=== PATIENT | male | born 1985 | race African-American/Black ===

== ENCOUNTER 2018-06-07 00:26 | Emergency (ER) | payer BC ==
[~2018-06-07] VITALS: Ht 170.2 cm; Wt 63.5 kg
--- OUTSIDE RECORDS SUMMARY | 2018-06-07 00:56 | XMS REPORT ---
Author Author LAYLA TURPIN Organization [facility] Address [address] [place] [address] Care Team Providers Care Bingo Clerk Name Role Phone LAYLA TURPIN Unavailable PROBLEMS Type Condition ICD9-CM Code IMN35-FV Code Onset Dates Condition Status SNOMED Code Problem Moderate persistent asthma without complication J45.40 Active 745876483 Problem Mild intermittent asthma without complication J45.20 Active 529100939 ALLERGIES No Known Allergies ENCOUNTERS Encounter Location Date Diagnosis [facility] [id number] [place] [address] Dec, Moderate persistent asthma without complication J45.40 [facility] [address] [address] Oct, Mild intermittent asthma without complication J45.20 [facility] [id number] [place] [phone] Mar, Exposure to STD Z20.2 [facility] [id number] [place] [address] Jul, [facility] [id number] [place] [address] Jul, [facility] [id number] [place] [address] Mar, [facility] [address] [address] Mar, [facility] [address] [address] Feb, [facility] [id number] [place] [address] 95[address] Feb, [facility] [address] [facility] [id number] [address] Feb, [facility] [address] [facility] [id number] Feb, [facility] [address] [facility] [id number][place] [address] Feb, [facility] [address] [facility] [id number], [place] [address] Feb, [facility] [address] [facility] [id number], [place] [address] Feb, [facility] [address] [facility] [id number], [place] [address] Jan, [facility] [address], [place] [address] Jan, [facility] [address], [place] [address] Jan, [facility] [address], [place] [address] Jan, [facility] [address], [place] [address] Jan, [facility] [address], [place] [address] Jan, [facility] [address], [place] [address] Jan, [facility] [id number], [place] [address] Jan, [facility] [id number], [place] [address] Jan, IMMUNIZATIONS No Known Immunizations SOCIAL HISTORY Never Assessed REASON FOR VISIT asthma f/u Kamaljit JOSEPH, needs refill on asthma inhaler Kamaljit JOSEPH PLAN OF CARE Activity Details Follow Up 6 Months Reason: VITAL SIGNS Height 68 in 2018-01-12 Weight 142.1 lbs 2018-01-12 Temperature 98 degrees Fahrenheit 2018-01-12 Heart Rate 73 bpm 2018-01-12 Respiratory Rate 18 2018-01-12 BMI 21.60 kg/m2 2018-01-12 Blood pressure systolic 106 mmHg 2018-01-12 Blood pressure diastolic 78 mmHg 2018-01-12 MEDICATIONS Medication Instructions Dosage Frequency Start Date End Date Duration Status Symbicort 80-4.5 MCG/ACT Inhalation Twice a day 2 puffs 12h 28 Dec, 2017 Active Ventolin HFA cfc free 90 mcg/inh inhale 2-4 puff by Inhalation route as needed every 4 hours for 30 days PRN for cough or wheeze Jan, Active RESULTS No Results PROCEDURES No Known procedures INSTRUCTIONS MEDICATIONS ADMINISTERED No Known Medications MEDICAL (GENERAL) HISTORY Type Description Date Medical History Asthma Surgical History No Surgical history information
--- OUTSIDE RECORDS SUMMARY | 2018-06-07 00:56 | XMS REPORT ---
Author Author LAUREANOCAROLYN Aguirre Organization [facility] Address [address] [place] [address] Care Team Providers Care Audit Senior Associate Name Role Phone CAROLYN LAUREANO Unavailable PROBLEMS Type Condition ICD9-CM Code EOF26-ZF Code Onset Dates Condition Status SNOMED Code Problem Other dyspnea and respiratory abnormalities 786.09 Active 555180768 Problem Screening examination for venereal disease V74.5 Active 571282922 Problem Asthma, unspecified, unspecified status 493.90 Active 56976366 Assessment Exposure to STD Z20.2 Mar, Active 794291418 ALLERGIES Substance Reaction Event Type Date Status N.K.D.A. Unknown Non Drug Allergy Mar, Unknown SOCIAL HISTORY No smoking Hx information available PLAN OF CARE VITAL SIGNS Height 68 in 2016-03-21 Weight 137.2 lbs 2016-03-21 Heart Rate 90 bpm 2016-03-21 Respiratory Rate 18 2016-03-21 BMI 20.86 kg/m2 2016-03-21 Blood pressure systolic 110 mmHg 2016-03-21 Blood pressure diastolic 70 mmHg 2016-03-21 MEDICATIONS Medication Instructions Dosage Frequency Start Date End Date Duration Status Metronidazole 500 MG Orally Twice a day 1 tablet 12h Mar, Mar, 07 days Active RESULTS Name Result Date Reference Range GC/CHLAM URINE (STATE) 2016-03-21 CHLAMYDIA GC HEP C ANTIBODY (STATE) 2016-03-21 RESULTS SYPHILIS (STATE) 2016-03-21 HIV (STATE) 2016-03-21 HEP B SURFACE ANTIGEN (STATE) 2016-03-21 HEP B ANTIBODY HEP B ANTIBODY (L) HEP B ANTIBODY (STATE) PROCEDURES Procedure Date Ordered Related Diagnosis Body Site No Charge Mar 21, 2016 Office Visit, Est Pt., Level 3 Mar 21, 2016 VENIPUNCT, ROUTINE* Mar 21, 2016 IMMUNIZATIONS No Known Immunizations
--- OUTSIDE RECORDS SUMMARY | 2018-06-07 00:56 | XMS REPORT ---
Author Author SHON GANDHI Guillaume [facility] Address Unknown Care Team Providers Care Unitizer Name Role Phone SHON GANDHI Unavailable PROBLEMS Type Condition ICD9-CM Code RCG20-QF Code Onset Dates Condition Status SNOMED Code Problem Moderate persistent asthma without complication J45.40 Active 320450979 Problem Mild intermittent asthma without complication J45.20 Active 047844294 ALLERGIES No Known Allergies ENCOUNTERS Encounter Location Date Diagnosis [facility] [id number] [place] [id number] Jan, Dental examination Z01.20 and Caries K02.9 [facility] [address] [address] Dec, Moderate persistent asthma without complication J45.40 [facility] [id number] [place] [address] Oct, Mild intermittent asthma without complication J45.20 [facility] [id number] [place] [address] Mar, Exposure to STD Z20.2 [facility] [id number] [place] [address] Jul, [facility] [address] [address] Jul, [facility] [address] [address] Mar, [facility] [address] [address] Mar, [facility] [address] [address] Feb, [facility] [address] [facility] [id number] [place] [address] Feb, [facility] [address] [id number] [place] [address] Feb, [facility] [address] [facility] [id number] [place] [address]- [address] Feb, [facility] [address] [facility] [id number] [place] [address]- [address] Feb, [facility] [address] [id number] [place] [address]- 8163 Feb, [facility] [address] [facility] [id number] [place] [address]- 9[address] Feb, [facility] [address] [facility] [id number] [address] Jan, [facility] [address] [facility] [id number] [place] [address]- [address] Jan, [facility] [address] [facility] [id number] [place] [address]- [address] Jan, [facility] [address] [facility] [id number] [place] [address]- [address] Jan, [facility] [address] [facility] [id number] [place] [address]- [address] Jan, [facility] [address] [facility] [id number] [place] [address]- [address] Jan, [facility] [address] [facility] [id number] [place] [address]- [address] Jan, [facility] [address] [facility] [id number] [place] [address]- [address] Jan, [facility] [address] [facility] [id number] [address]- [address] Jan, IMMUNIZATIONS No Known Immunizations SOCIAL HISTORY Never Assessed REASON FOR VISIT brennan PLAN OF CARE Activity Details Follow Up prn Reason:as needed VITAL SIGNS Height 68 in 2018-02-13 Blood pressure systolic 122 mmHg 2018-02-13 Blood pressure diastolic 85 mmHg 2018-02-13 MEDICATIONS Medication Instructions Dosage Frequency Start Date End Date Duration Status Ventolin HFA cfc free 90 mcg/inh inhale 2-4 puff by Inhalation route as needed every 4 hours for 30 days PRN for cough or wheeze Jan, Active Symbicort 80-4.5 MCG/ACT Inhalation Twice a day 2 puffs 12h Dec, Active Amoxicillin 500 mg Orally every 8 hrs 1 capsule 8h Jan, 7 days Active RESULTS No Results PROCEDURES Procedure Date Ordered Result Body Site LTD ORAL EVALUATION - PROBLEM FOCUS Feb 13, 2018 INTRAORL-PERIAPICAL 1 FILM [id number] Feb 13, 2018 EXTRAC ERUPTED TOOTH/EXPOSED ROOT Feb 13, 2018 BITEWING - SINGLE FILM Feb 13, 2018 INSTRUCTIONS MEDICATIONS ADMINISTERED No Known Medications MEDICAL (GENERAL) HISTORY Type Description Date Medical History Asthma Surgical History No Surgical history information
--- OUTSIDE RECORDS SUMMARY | 2018-06-07 00:56 | XMS REPORT | Continuity of Care Document ---
Author Author [facility] Address Unknown Phone Unavailable Allergies There is no data. Medications There is no data. Problems Date Dx Coded Attending Type Code Diagnosis Diagnosed By 01/24/2013 DESIRAE KAPLAN DO V74.5 SCREENING EXAMINATION FOR VENEREAL DISEASE 01/24/2013 DESIRAE KAPLAN DO V74.5 SCREENING EXAMINATION FOR VENEREAL DISEASE 01/24/2013 YANI ANTHONY APRN V74.5 SCREENING EXAMINATION FOR VENEREAL DISEASE 01/24/2013 YANI ANTHONY APRN V74.5 SCREENING EXAMINATION FOR VENEREAL DISEASE 02/06/2013 DESIRAE KAPLAN DO 493.90 ASTHMA UNSPECIFIED 02/06/2013 YANI ANTHONY APRN 493.90 ASTHMA UNSPECIFIED 02/06/2013 YANI ANTHONY APRN R 493.90 ASTHMA UNSPECIFIED 02/19/2014 YANI ANTHONY APRN 786.09 RESPIRATORY ABNORMALITY OTHER 02/19/2014 YANI ANTHONY APRN 786.09 RESPIRATORY ABNORMALITY OTHER Procedures Code Description [place] [id number] ROUTINE VENIPUNCTURE 01/24/2013 30619 SYPHILIS TEST 01/24/2013 41282 HIV ANTIBODIES (RML) 01/24/2013 78063 GC/CHLAM URINE (STATE) 01/24/2013 38347 ROUTINE VENIPUNCTURE 02/19/2014 29977 CBC 02/19/2014 74233 MYCOPLASMA ANTIBODY 02/20/2014 66672 XRAY CHEST 2 VIEW 02/20/2014 17580 OXIMETRY 02/20/2014 Results There is no data. Encounters ACCT No. Visit Date/Time Discharge Status Pt. Type Provider Facility Loc./Unit Complaint [id number] 03/21/2014 11:01:00 03/21/2014 23:59:59 CLS Outpatient YANI ANTHONY APRN [id number] 02/19/2014 09:28:00 02/19/2014 23:59:59 CLS Outpatient YANI ANTHONY APRN [id number] 02/06/2013 10:58:00 02/06/2013 23:59:59 CLS Outpatient DESIRAE KAPLAN DO [id number] 01/24/2013 08:47:00 01/24/2013 23:59:59 [place] [id number] 05/10/2018 08:05:00 05/10/2018 23:59:59 CLS Outpatient RAVIN GARRETT [facility]
--- OUTSIDE RECORDS SUMMARY | 2018-06-07 00:56 | XMS REPORT ---
Author Author LAYLA TURPIN Organization [facility] Address [address] [place] [address] Care Team Providers Care Bacteriologist Soil Name Role Phone LAYLA TURPIN Unavailable PROBLEMS Type Condition ICD9-CM Code RMC83-LZ Code Onset Dates Condition Status SNOMED Code Problem Mild intermittent asthma without complication J45.20 Active 286315656 ALLERGIES No Known Allergies ENCOUNTERS Encounter Location Date Diagnosis [facility] [id number] [place] [address] Oct, Mild intermittent asthma without complication J45.20 [facility] [id number] [place] [phone] Mar, Exposure to STD Z20.2 [facility] [id number] [place] [address] Jul, [facility] [address] [address] Jul, [facility] [id number] [place] [address]- 49[address] Mar, [facility] [id number] [place] [address]- [address] Mar, [facility] [id number] [place] [address]- 3558 Feb, [facility] [address] [address] Feb, [facility] [id number] [place] [address]- [address]64 Feb, [facility] [address] [address] Feb, [facility] [address] [address] Feb, [facility] [place] [address] [facility] [id number] Feb, [facility] [address] Feb, [facility] [address] [facility] [id number][place]23[place] Jan, [facility] [place] [address] [facility] [id number] Jan, [facility] [address] [address] Jan, [facility] [place] [address], [place] [address] Jan, [facility] [address], [place] [address]- [address] Jan, [facility] [address], [place] [address]- [address] Jan, [facility] [address], [place] [address]- [address]68 Jan, [facility] [address], [place] [address]- [address] Jan, [facility] [id number] [address] Jan, IMMUNIZATIONS No Known Immunizations SOCIAL HISTORY Never Assessed REASON FOR VISIT Asthma, PT reports that since yesterday his asthma has worsened making it hard for him to sleep -Zia JOSEPH , Felicia clarke PLAN OF CARE Activity Details Follow Up prn Reason: VITAL SIGNS Height 68 in 2017-10-16 Weight 142.0 lbs 2017-10-16 Temperature 98.6 degrees Fahrenheit 2017-10-16 Heart Rate 87 bpm 2017-10-16 Respiratory Rate 20 2017-10-16 Oximetry on room air:95 % 2017-10-16 BMI 21.59 kg/m2 2017-10-16 Blood pressure systolic 120 mmHg 2017-10-16 Blood pressure diastolic 100 mmHg 2017-10-16 MEDICATIONS Medication Instructions Dosage Frequency Start Date [...]
[2018-06-07 00:57] LABS: BILIRUBIN,URINE NEGATIVE (NEGATIVE); CLARITY,URINE CLEAR; COLOR,URINE YELLOW; GLUCOSE, URINE (UA) NEGATIVE (NEGATIVE); KETONES,URINE NEGATIVE (NEGATIVE); LEUKOCYTE ESTERASE ,URINE NEGATIVE (NEGATIVE); NITRITE,URINE NEGATIVE (NEGATIVE); PH,URINE 7 (5-9); PROTEIN,URINE NEGATIVE (NEGATIVE); UROBILINOGEN,URINE NORMAL (NORMAL)
[2018-06-07 01:00] LABS: BASOPHILS % (AUTO) 1 % (0-10); EOSINOPHILS # (AUTO) 0.5 10^3/uL (0.0-0.3); EOSINOPHILS % (AUTO) 8 % (0-10); HEMATOCRIT 42 % (40-54); HEMOGLOBIN 14.5 G/DL (13.3-17.7); LYMPHOCYTES # (AUTO) 3.1 X 10^3 (1.0-4.0); LYMPHOCYTES % (AUTO) 51 % (12-44); MEAN CORPUSCULAR HEMOGLOBIN 30 PG (25-34); MEAN CORPUSCULAR HGB CONC 34 G/DL (32-36); MEAN CORPUSCULAR VOLUME 86 FL (80-99); MONOCYTES # (AUTO) 0.5 X 10^3 (0.0-1.0); MONOCYTES % (AUTO) 9 % (0-12); NEUTROPHILS # (AUTO) 1.9 X 10^3 (1.8-7.8); NEUTROPHILS % (AUTO) 32 % (42-75); PLATELET COUNT 268 10^3/uL (130-400); RED CELL DISTRIBUTION WIDTH 14.5 % (10.0-14.5)
[2018-06-07 01:06] LABS: BACTERIA,URINE TRACE /HPF; SQUAMOUS EPITHELIAL CELL,UR RARE /HPF
--- NOTE | 2018-06-07 01:16 | ED Abdominal Pain ---
General Chief Complaint: Abdominal/GI Problems Stated Complaint: ABD PAIN,LEFT SIDE Nursing Triage Note: complaint of abdominal pain since monday denies fever denies n/v/d Sepsis Screen: No Definite Risk Source of Information: Patient History of Present Illness Date Seen by Provider: Jun 07, 2018 Time Seen by Provider: 00:50 Initial Comments PT ARRIVES VIA POV FROM HOME C/O LUQ PAIN SINCE Monday06/04/18 STATES PAIN STARTED AT 0400 ON MONDAY AND LASTED TIL NOON STARTED AGAIN AT 0500 ON MONDAY AND LASTED TIL NOON STARTED AGAIN AT 0600 ON MONDAY /EARLIER TODAY AND LASTED TIL NOON PAIN RETURNED AT 2200 TONIGHT AND IS STILL PRESENT, BUT IS NOT VERY BAD NOW NOTHING WORSENS OR IMPROVES PAIN NO NAUSEA/VOMITING/DIARRHEA/CONSTIPATION--HAD BM AT 0600 AND AGAIN AT 2200 NO FEVER NO URINARY SYMPTOMS HAS CONTINUED TO EAT AND DRINK USUAL--LAST ATE AROUND 2100--PIZZA NO HISTORY OF SIMILAR HAS NOT TAKEN ANYTHING FOR PAIN PCP:[facility] Allergies and Home Medications Allergies Coded Allergies: No Known Allergies (Unverified Allergy, Mild, 08/26/08) Patient Home Medication List Home Medication List Reviewed: Yes Review of Systems Review of Systems Constitutional: no symptoms reported Respiratory: No Symptoms Reported Cardiovascular: No Symptoms Reported Gastrointestinal: See HPI, Abdominal Pain; Denies Constipated, Denies Diarrhea , Denies Nausea, Denies Poor Appetite, Denies Vomiting Genitourinary: No Symptoms Reported Musculoskeletal: no symptoms reported Skin: no symptoms reported Psychiatric/Neurological: No Symptoms Reported Endocrine: No Symptoms Reported Hematologic/Lymphatic: No Symptoms Reported Past Ntlmxji-Kgtdih-Eqtjjg Hx Patient Social History Alcohol Use: Denies Use Recreational Drug Use: No Smoking Status: Current Everyday Smoker (1 PPD, HAS "VAPED" SINCE 10/2017) Type Used: Cigarettes, Electronic/Vapor 2nd Hand Smoke Exposure: Yes Recent Foreign Travel: No Contact w/Someone Who Travel: No Recent Infectious Disease Expo: No Recent Hopitalizations: No Seasonal Allergies Seasonal Allergies: No Past Medical History Surgeries: No Respiratory: Yes Asthma Cardiac: No Neurological: No Reproductive Disorders: No Genitourinary: No Gastrointestinal: No Musculoskeletal: No Endocrine: No HEENT: No Cancer: No Psychosocial: No Integumentary: No Blood Disorders: No Physical Exam Vital Signs Vital Signs - First Documented 06/07/18 00:50 Temp 96.9 Pulse 71 Resp 20 B/P (MAP) 126/91 (103) Pulse Ox 98 O2 Delivery Room Air Capillary Refill : Less Than 3 Seconds Height/Weight/BMI Height: 5'7.00" Weight: 140lbs. oz. 63.764782ed; BMI Method:Estimated General Appearance: WD/WN, no apparent distress, thin, other (LAYING OUTSTRETCHED, DOES NOT APPEAR TO BE IN ANY DISCOMFORT OR DISTRESS) Respiratory: normal breath sounds, no respiratory distress, no accessory muscle use Cardiovascular: regular rate, rhythm, no murmur Gastrointestinal: normal bowel sounds, soft, no organomegaly, no pulsatile mass ; No distended, No guarding, No rebound; tenderness (LUQ); No hernia, No mass Extremities: normal inspection Back: normal inspection, no CVA tenderness Neurologic/Psychiatric: admissions dean II-XII nml as tested, no motor/sensory deficits, alert, normal mood/affect, oriented x 3 Skin: normal color (PT IS BLACK); No rash Progress/Results/Core Measures Results/Orders Lab Results Laboratory Tests Test 06/07/18 00:46 06/07/18 00:50 Range/Units Urine Color YELLOW Urine Clarity CLEAR Urine pH 7 5-9 Urine Specific [place] 1.010 L 1.016-1.022 Urine Protein NEGATIVE NEGATIVE Urine Glucose (UA) NEGATIVE NEGATIVE Urine Ketones NEGATIVE NEGATIVE Urine Nitrite NEGATIVE NEGATIVE Urine Bilirubin NEGATIVE NEGATIVE Urine Urobilinogen NORMAL NORMAL MG/DL Urine Leukocyte Esterase NEGATIVE NEGATIVE Urine RBC (Auto) NEGATIVE NEGATIVE Urine RBC NONE /HPF Urine WBC NONE /HPF Urine Squamous Epithelial Cells RARE /HPF Urine Crystals NONE /LPF Urine Bacteria TRACE /HPF Urine Casts NONE /LPF Urine Mucus NEGATIVE /LPF Urine Culture Indicated NO White Blood Count 6.0 4.3-11.0 10^3/uL Red Blood Count 4.91 4.35-5.85 10^6/uL Hemoglobin 14.5 13.3-17.7 G/DL Hematocrit 42 40-54 % Mean Corpuscular Volume 86 80-99 FL Mean Corpuscular Hemoglobin 30 25-34 PG Mean Corpuscular Hemoglobin Concent 34 32-36 G/DL Red Cell Distribution Width 14.5 10.0-14.5 % Platelet Count 268 130-400 10^3/uL Mean Platelet Volume 9.0 7.4-10.4 FL Neutrophils (%) (Auto) 32 L 42-75 % Lymphocytes (%) (Auto) 51 H 12-44 % Monocytes (%) (Auto) 9 0-12 % Eosinophils (%) (Auto) 8 0-10 % Basophils (%) (Auto) 1 0-10 % Neutrophils # (Auto) 1.9 1.8-7.8 X 10^3 Lymphocytes # (Auto) 3.1 1.0-4.0 X 10^3 Monocytes # (Auto) 0.5 0.0-1.0 X 10^3 Eosinophils # (Auto) 0.5 H 0.0-0.3 10^3/uL Basophils # (Auto) 0.0 0.0-0.1 10^3/uL Sodium Level 138 135-145 MMOL/L Potassium Level 4.4 3.6-5.0 MMOL/L Chloride Level 105 98-107 MMOL/L Carbon Dioxide Level 23 21-32 MMOL/L Anion Gap 10 5-14 MMOL/L Blood Urea Nitrogen 12 7-18 MG/DL Creatinine 0.97 0.60-1.30 MG/DL Estimat Glomerular Filtration Rate > 60 BUN/Creatinine Ratio 12 Glucose Level 100 70-105 MG/DL Calcium Level 9.2 8.5-10.1 MG/DL Corrected Calcium 9.0 8.5-10.1 MG/DL Total Bilirubin 0.3 0.1-1.0 MG/DL Aspartate Amino Transf (AST/SGOT) 26 5-34 U/L Alanine Aminotransferase (ALT/SGPT) 28 0-55 U/L Alkaline Phosphatase 71 40-136 U/L Total Protein 7.4 6.4-8.2 GM/DL Albumin 4.3 3.2-4.5 GM/DL Amylase Level 104 25-125 U/L Lipase 40 8-78 U/L My Orders Orders - YANELY,JERSON K DO Saline Lock/Iv-Start (06/07/18 00:50) Amylase (06/07/18 00:50) Cbc With Automated Diff (06/07/18 00:50) Comprehensive Metabolic Panel (06/07/18 00:50) Lipase (06/07/18 00:50) Ua Culture If Indicated (06/07/18 00:50) Ct Abdomen/Pelvis W (06/07/18 01:08) Acute Abd Series (06/07/18 01:08) Iohexol Injection (Omnipaque 350 Mg/Ml 1 (06/07/18 01:45) Contrast Received (Contrast Received) (06/07/18 01:45) Ns (Ivpb) (Sodium Chloride 0.9% Ivpb Bag (06/07/18 01:45) Medications Given in ED Current Medications Medications Dose Ordered Sig/Lindsey Route Start Time Stop Time Status Last Admin Dose Admin Iohexol 100 ml ONCE ONCE IV 06/07/18 01:45 06/07/18 01:46 DC 06/07/18 01:38 100 ML Sodium Chloride 100 ml ONCE ONCE IV 06/07/18 01:45 06/07/18 01:46 DC 06/07/18 01:39 80 ML Vital Signs/I&O 06/07/18 00:50 Temp 96.9 Pulse 71 Resp 20 B/P (MAP) 126/91 (103) Pulse Ox 98 O2 Delivery Room Air Blood Pressure Mean: 103 Progress Progress Note : Progress Note SLEPT FOR REMAINDER OF ER STAY NO C/O PAIN AT DISMISSAL Diagnostic Imaging Comments ACUTE ABDOMEN XRAYS--NO -SPECIFIC BOWEL GAS, LARGE AMOUNT OF GAS AND STOOL IN COLON, PENDING RADIOLOGIST REVIEW CT ABDOMEN / PELVIS--NON-SPECIFIC COLON AND SMALL BOWEL, WITH FECAL STASIS, POSSIBLE ENTERITIS/COLITIS, NON SPECIFIC AREAS ON SPLEEN AND LEFT KIDNEY, --PER [facility] VIA FAX F@ 3013 Reviewed: Reviewed by Me Departure Impression Primary Impression: LUQ abdominal pain Additional Impressions: POSSIBLE ENTERITIS Constipation Disposition: HOME, SELF-CARE Condition: Improved Departure-Patient Inst. Referrals: [facility] (PCP[facility]Family) Primary Care Physician Patient Instructions: Acute Abdomen (Belly Pain), Adult (DC) Add. Discharge Instructions: CLEAR LIQUIDS--WATER, BROTH, JELLO, GATORADE TAKE MIRALAX EVERY 4 HOURS UNTIL YOUR STOOLS ARE WATERY, THEN DECREASE TO ONCE A DAY FOLLOW UP WITH [facility] IN 2-3 DAYS IF NO BETTER All discharge instructions reviewed with patient and/or family. Voiced understanding. Images Torso/Trunk 1 - Mild, Tenderness JERSON [place] DO Jun 07, 2018 01:16
[2018-06-07 01:22] LABS: ALANINE AMINOTRANSFERASE 28 U/L (0-55); ALBUMIN 4.3 GM/DL (3.2-4.5); ALKALINE PHOSPHATASE 71 U/L (40-136); AMYLASE 104 U/L (25-125); BILIRUBIN,TOTAL 0.3 MG/DL (0.1-1.0); BUN/CREATININE RATIO 12; CALCIUM 9.2 MG/DL (8.5-10.1); CARBON DIOXIDE 23 MMOL/L (21-32); CHLORIDE 105 MMOL/L (98-107); CREATININE SERUM 0.97 MG/DL (0.60-1.30); GFR ESTIMATED > 60; GLUCOSE 100 MG/DL (70-105); LIPASE 40 U/L (8-78); POTASSIUM 4.4 MMOL/L (3.6-5.0); SODIUM 138 MMOL/L (135-145); TOTAL PROTEIN 7.4 GM/DL (6.4-8.2)
[2018-06-07] MEDS ORDERED: IOHEXOL 350 MG/ML 100 ML (OMNIPAQUE 350) VIAL IV ONE (01:45)
[2018-06-07] MEDS ORDERED: RECEIVED CONTRAST (Hold Metformin) IV SCH (01:45)
[2018-06-07] MEDS ORDERED: NS 100 ML (IVPB) BAG IV ONE (01:45)
[2018-06-07 02:40] VITALS: BP 139/86
--- NOTE | 2018-06-07 06:46 | Diagnostic Imaging Report ---
PROCEDURE: CT abdomen and pelvis with contrast. TECHNIQUE: Multiple contiguous axial images were obtained through the abdomen and pelvis after administration of intravenous contrast. INDICATION: Abdominal pain. COMPARISON: Abdominal radiograph 06/07/2017. FINDINGS: Lung bases are clear. The liver, gallbladder, pancreas, spleen, adrenals, kidneys, collecting systems and bladder are negative. Normal partially visualized appendix. No free intraperitoneal air or fluid. No lymphadenopathy. No evidence of bowel obstruction or inflammation. No acute osseous findings. Moderate right apex lower thoracic curvature. IMPRESSION: No acute CT findings in the abdomen or pelvis. The appendix is partially visualized but appears normal. Dictated by: Dictated on workstation # [id number]
--- NOTE | 2018-06-07 07:21 | Diagnostic Imaging Report ---
EXAM: ACUTE ABD SERIES INDICATION: Abdominal pain. COMPARISON: None. FINDINGS: Normal heart size and central pulmonary vascularity. No focal pulmonary opacity, pleural effusion or pneumothorax. No acute osseous findings. Nonspecific bowel gas pattern. No free intraperitoneal air. No acute osseous findings. Moderate thoracolumbar scoliosis IMPRESSION: No acute radiographic findings in the chest or abdomen. Dictated by: Dictated on workstation # [id number]
== END 2018-06-07 02:40 | disposition home or self-care (01) ==
LOC: EDUNIT# 00:26 → ER 00:32
DX: K59.00 Constipation, unspecified (principal); J45.909 Unspecified asthma, uncomplicated; F17.210 Nicotine dependence, cigarettes, uncomplicated; F17.290 Nicotine dependence, other tobacco product, uncomplicated
CPT/HCPCS: 36415; 74022; 74177; 80053; 81000; 82150; 83690; 85025